=== PATIENT | female | born 1965 | race Caucasian/White ===

== ENCOUNTER 2016-06-17 12:51 | Emergency (ER) | payer MEDICARE, BC ==
[~2016-06-17] VITALS: Ht 162.6 cm; Wt 97.0 kg
[2016-06-17 13:15] VITALS: BP 193/93; PULSE 91; RESP 16; TEMP 97.5; O2SAT 98
--- NOTE | 2016-06-17 13:17 | PD ---
HPI Chief Complaint: slured speech Time Seen by Provider: 13:11 Travel History International Travel<30 days: No Contact w/Intl Traveler<30days: No History of Present Illness HPI Patient presents with complaints of right sided facial asymmetry. Denies any recent illnesses or sick contacts. Patient states that on Saturday she was driving and couldn't get her words out right. Additionally states that she was on the phone with her father on Saturday and her father thought she was slurring her speech. noticed her right lip was drooping at 10:00 this morning but her right eye was not closing all the way since yesterday. Denies any falls. Denies any head trauma. Reports a past medical history of diabetes with gastroparesis fibromyalgia and multiple surgeries. [facility] Social History Tobacco Use: No Allergies-Medications (Allergen,Severity, Reaction): Coded Allergies: No Known Allergies (Unverified , 06/17/16) Reported Meds & Prescriptions Reported Meds & Active Scripts Active Reported Vitamin E 400 Unit Tab 400 Units PO DAILY Glimepiride 4 Mg Tab 4 Mg PO DAILY Take with breakfast or first main meal Lantus Inj (Insulin Glargine) 1,000 Unit/10 Ml Vial 65 Units SQ HS Vitamin D3 (Cholecalciferol) 1,000 Unit Cap 1,000 Units PO DAILY [Fish Oil] 1,200 Mg PO DAILY Cymbalta DR (Duloxetine HCl) 60 Mg Capdr 60 Mg PO DAILY Meloxicam 15 Mg Tab 15 Mg PO DAILY Fluoxetine (Fluoxetine HCl) 40 Mg Cap 40 Cap PO DAILY Atorvastatin (Atorvastatin Calcium) 40 Mg Tab 40 Mg PO HS Tizanidine (Tizanidine HCl) 4 Mg Cap 1-1.5 Tab PO HS Gabapentin 600 Mg Tab 600 Mg PO TID Review of Systems General / Constitutional: No: Fever Eyes: No: Visual changes HENT: No: Headaches Cardiovascular: No: Chest Pain or Discomfort Respiratory: No: Shortness of Breath Gastrointestinal: No: Abdominal Pain Genitourinary: No: Dysuria Musculoskeletal: No: Pain Skin: No Rash Neurologic: No: Weakness Psychiatric: No: Depression Endocrine: No: Polydipsia Hematologic/Lymphatic: No: Easy Bruising Physical Exam Narrative GENERAL: Well-nourished, well-developed patient. SKIN: Warm and dry. HEAD: Normocephalic. There does appear to be some right sided asymmetry with smile and eyebrow EYES: No scleral icterus. No injection or drainage. NECK: Supple, trachea midline. No JVD or lymphadenopathy. CARDIOVASCULAR: Regular rate and rhythm without murmurs, gallops, or rubs. RESPIRATORY: Breath sounds equal bilaterally. No accessory muscle use. GASTROINTESTINAL: Abdomen soft, non-tender, nondistended. MUSCULOSKELETAL: No cyanosis, or edema. Upper extremity strength is equal Lower extremity strength is equal BACK: Nontender without obvious deformity. No CVA tenderness. Patient observed walking to the bathroom for urine specimen without any gait abnormalities Data Data Last Documented VS Vital Signs Date Time Temp Pulse Resp B/P Pulse Ox O2 Delivery O2 Flow Rate FiO2 06/17/16 15:10 169/62 06/17/16 14:43 88 16 97 Room Air 06/17/16 13:15 97.5 Orders Clonidine (Catapres) (06/17/16 14:15) [facility] [place] Medical Decision Making Medical Screen Exam Complete: Yes Emergency Medical Condition: Yes Differential Diagnosis Julio's palsy, fibromyalgia, malingering, CVA, urgent hypertension Narrative Course Assessment and plan discussed with patient and at bedside. Blood pressure improved with clonidine. Headache improved with improved blood pressure. Diagnosis Primary Impression: Julio's palsy Patient Instructions: General Instructions Additional Instructions: Rest fluids and Motrin, encourage refresh eyedrops. Steroid taper as prescribed. Follow-up with PCP to assess progress. Med/Other Pt SpecificInfo: Prescription(s) given Scripts Prednisone (21) 10 mg tab Dose Pack 10 Mg Pack10 Mg PO DIRECTED #1 DSPK Ref 0 Prov:Faisal Clements MD 06/17/16 Disposition: 01 DISCHARGE HOME Condition: Good Faisal Clements MD Jun 17, 2016 13:17
[2016-06-17] MEDS ORDERED: LANTUS2P SQ (13:31)
[2016-06-17] MEDS ORDERED: CYMB60CA PO (13:31)
[2016-06-17] MEDS ORDERED: ATOR40TA16 PO (13:31)
[2016-06-17] MEDS ORDERED: NATU400T PO (13:31)
[2016-06-17] MEDS ORDERED: VITA100036 PO (13:31)
[2016-06-17] MEDS ORDERED: FLUO40CA PO (13:31)
[2016-06-17] MEDS ORDERED: GABA600T PO (13:31)
[2016-06-17] MEDS ORDERED: GLIM4TAB PO (13:31)
[2016-06-17] MEDS ORDERED: MELO-1 PO (13:31)
[2016-06-17] MEDS ORDERED: TIZA4CAP3 PO (13:31)
[2016-06-17] MEDS ORDERED: FISHOIL PO (13:31)
[2016-06-17 13:59] VITALS: BP 184/81; PULSE 89; RESP 17; O2SAT 97
[2016-06-17] MEDS ORDERED: cloNIDine HCL 0.1 MG TAB PO ONE (14:15)
[2016-06-17 14:43] VITALS: BP 175/75; PULSE 88; RESP 16; O2SAT 97
[2016-06-17 15:10] VITALS: BP 169/62
[2016-06-17] MEDS ORDERED: PRED10PA PO (15:25)
[2016-06-18] MEDS ORDERED: OMEG5CAP PO (09:25)
== END 2016-06-17 15:46 | disposition home or self-care (01) ==
LOC: PHED 12:51
DX: G51.0 Bell's palsy (principal); E11.43 Type 2 diabetes mellitus with diabetic autonomic (poly)neuropathy; K31.84 Gastroparesis; M79.7 Fibromyalgia; Z79.4 Long term (current) use of insulin
CPT/HCPCS: 99284